=== PATIENT | male | born 1945 | race Caucasian/White ===

== ENCOUNTER → 2018-01-03 10:15 | Outpatient (CLI) | payer MEDICARE, OTHER, SELFPAY ==
[2018-01-03 11:13] LABS: BUN Creatinine Ratio 27.7 (6-22); Calcium 9.1 mg/dL (8.4-10.2); Glucose 110 mg/dL (80-110); HEMOLYSIS < 15 (0-50); Potassium 3.1 mmol/L (3.4-5.1); Sodium 140 mmol/L (137-145)
[2018-01-03 11:39] LABS: Cortisol Random 6.94 ug/dL
[2018-01-07 15:38] LABS: Aldosterone/Renin Activity Rat 52.6 Ratio (0.9-28.9); Plama Renin, LC/MS/MS 0.19 ng/mL/h (0.25-5.82)
== END ==
PROVIDERS: PCP Internal Medicine; Visit Provider Internal Medicine
DX: I10 Essential (primary) hypertension (principal)
CPT/HCPCS: 36415; 80048; 82088; 82533; 84244

== ENCOUNTER → 2018-01-16 09:08 | Outpatient (CLI) | payer MEDICARE, OTHER, SELFPAY | PROVIDERS: PCP Internal Medicine; Visit Provider Internal Medicine | DX: E26.1 Secondary hyperaldosteronism (principal) | CPT/HCPCS: 82088 ==

== ENCOUNTER 2018-02-14 18:07 | Emergency (ER) | payer MEDICARE, OTHER, SELFPAY ==
[2018-02-14 18:12] VITALS: BP 164/77; PULSE 88; RESP 18; TEMP 37; O2SAT 98
--- NOTE | 2018-02-14 21:00 | ED.ALLEREA ---
HPI - Allergic Reaction <Kaitlin Mendez PA-C - Last Filed: 02/14/18 22:13> General Chief complaint: Allergic Reaction Stated complaint: STUNG ON RT HAND BY WASP 3DAYS AGO Time Seen by Provider: 02/14/18 21:00 Source: patient Mode of arrival: ambulatory Limitations: no limitations History of Present Illness HPI narrative: This 72-year-old patient comes to the ED this evening due to swelling and redness on his right hand. He states that he had a wasp sting on his hand on Saturday and noticed mild swelling and a little bit of redness and itching as is typical for him, but in the last couple of days he has had worsening swelling and redness, and states that his thumb started to feel stiff any is having more difficulty closing his fingers due to the swelling, so that brought him in tonight. He denies any fever and states that his pain is mild and is more of a swollen, stiff sensation. He denies any other new complaints on systems review. 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 He has GI intolerance with doxycycline. He states his only true allergy is with iodine. Related Data Previous Rx's Medication Instructions Recorded furosemide [Lasix] 20 mg PO Q DAY #30 tab 10/09/17 cephalexin [Keflex] 500 mg PO QID #24 cap 02/14/18 Allergies Allergy/AdvReac Type Severity Reaction Status Date / Time doxycycline Allergy Unknown Verified 02/14/18 18:21 Penicillins Allergy Unknown Verified 02/14/18 18:20 Review of Systems <Kaitlin Mendez PA-C - Last Filed: 02/14/18 22:13> Review of Systems All systems reviewed & are unremarkable except as noted in HPI and below Exam <Kaitlin Mendez PA-C - Last Filed: 02/14/18 22:13> Narrative Exam Narrative: GENERAL APPEARANCE: Patient sitting comfortably, in no distress. LUNGS: Clear to auscultation bilaterally. HEART: Rate and rhythm regular without murmur, normal S1 and S2, no S3 or S4. DERMATOLOGIC: Right hand dorsum is warm, erythematous over the hand and metacarpals, not over the fingers. This extends no further than the wrist. There is a tiny puncture or sting wound on the lateral dorsum. MUSCULOSKELETAL: Moderate right hand dorsum effusion. Right hand fingers able to extend and flex but difficulty with full evaluation assistant secondary to effusion. Full a ROM of the wrist. NEUROVASCULAR: Right hand sensation is grossly intact, fingers are warm and pink and pulses are intact radial and ulnar Initial Vital Signs Initial Vital Signs: Vital Signs Temperature 98.6 F 02/14/18 18:12 Pulse Rate 88 02/14/18 18:12 Respiratory Rate 18 02/14/18 18:12 Blood Pressure 164/77 H 02/14/18 18:12 Pulse Oximetry 98 02/14/18 18:12 <Al Aguilar MD - Last Filed: 02/15/18 03:15> Initial Vital Signs Initial Vital Signs: Vital Signs Temperature 98.6 F 02/14/18 18:12 Pulse Rate 88 02/14/18 18:12 Respiratory Rate 18 02/14/18 18:12 Blood Pressure 164/77 H 02/14/18 18:12 Pulse Oximetry 98 02/14/18 18:12 Course <Kaitlin Mendez PA-C - Last Filed: 02/14/18 22:13> Additional Information: Patient does appear to have developed a secondary cellulitis following his insect sting. This is limited to the hand dorsum. Reviewed previous records and he has taken cephalosporins without problems. Given cephalexin to start as well as 20 mg of prednisone x3 days. He agreed to return if acutely worsening over the weekend. Margins of erythema inked so he can monitor Orders Ordered: Discontinued Medications Cefazolin Sodium (Keflex) 1 bottle MISC SEEINSTR ONE Stop: 02/14/18 21:21 Last Admin: 02/14/18 21:21 Dose: 1 1000units Prednisone (Deltasone 20 Mg Prepack) 1 bottle MISC SEEINSTR ONE Stop: 02/14/18 21:21 Last Admin: 02/14/18 21:22 Dose: 1 bottle Vital Signs - 8 hr 02/14/18 21:14 Temperature 98.7 F Pulse Rate 77 Respiratory Rate 20 Blood Pressure [Left Arm] 151/79 H Pulse Oximetry 100 <Al Aguilar MD - Last Filed: 02/15/18 03:15> Orders Ordered: Discontinued Medications Cefazolin Sodium (Keflex) 1 bottle MISC SEEINSTR ONE Stop: 02/14/18 21:21 Last Admin: 02/14/18 21:21 Dose: 1 1000units Prednisone (Deltasone 20 Mg Prepack) 1 bottle MISC SEEINSTR ONE Stop: 02/14/18 21:21 Last Admin: 02/14/18 21:22 Dose: 1 bottle Vital Signs - 8 hr 02/14/18 21:14 Temperature 98.7 F Pulse Rate 77 Respiratory Rate 20 Blood Pressure [Left Arm] 151/79 H Pulse Oximetry 100 Discharge Plan Departure Patient Disposition: Home, Self-Care Clinical Impression: Cellulitis, Wasp sting Discharge Date/Time: 02/14/18 21:35 Interventions: ED Discharge Assessment Last Done: 02/14/18 21:33 Instructions: DI for Cellulitis -- Adult, DI for Insect Bites and Stings Activity Restrictions/Additional Instructions: Please return as we talked about if your hand is acutely worse over the weekend, or you have new symptoms such as fever otherwise take the 1st dose of prednisone (1 tablet) when you get home, and take 1 daily for 3 days to help with the swelling. Take 2 of the antibiotic pills that we gave you 4 times daily, and I also sent a prescription in to the pharmacy for you to grape picker which will be 1 pill at a time, also 4 times daily. You should follow up with your PCP if this is not improving over the next few days. Prescriptions: New cephalexin [Keflex] 500 mg capsule 500 mg PO QID Qty: 24 RF: 0 No Action furosemide [Lasix] 20 MG tablet 20 mg PO Q DAY Qty: 30 RF: 0 Referrals: Med Fernandez MD [Primary Care Provider] - <Al Aguilar MD - Last Filed: 02/15/18 03:15> Cosign ED Attending Aguedaature Attestation: I was available in the ER department for consultation and assistance if necessary. I agree with the content of the note and the treatment plan.
[2018-02-14 21:14] VITALS: BP 151/79; PULSE 77; RESP 20; TEMP 37.1; O2SAT 100
[2018-02-14] MEDS: cephALEXin 250 MG PREPACK 1 BOTTLE MISC (21:21)
[2018-02-14] MEDS: predniSONE 20 MG PREPACK 1 BOTTLE MISC (21:22)
--- NOTE | 2018-02-14 21:29 | ED_ITS ---
HPI - Allergic Reaction <Kaitlin Mendez PA-C - Last Filed: 02/14/18 22:13> General Chief complaint: Allergic Reaction Stated complaint: STUNG ON RT HAND BY WASP 3DAYS AGO Time Seen by Provider: 02/14/18 21:00 Source: patient Mode of arrival: ambulatory Limitations: no limitations History of Present Illness HPI narrative: This 72-year-old patient comes to the ED this evening due to swelling and redness on his right hand. He states that he had a wasp sting on his hand on Saturday and noticed mild swelling and a little bit of redness and itching as is typical for him, but in the last couple of days he has had worsening swelling and redness, and states that his thumb started to feel stiff any is having more difficulty closing his fingers due to the swelling, so that brought him in tonight. He denies any fever and states that his pain is mild and is more of a swollen, stiff sensation. He denies any other new complaints on systems review. 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 He has GI intolerance with doxycycline. He states his only true allergy is with iodine. Related Data Previous Rx's Medication Instructions Recorded furosemide [Lasix] 20 mg PO Q DAY #30 tab 10/09/17 cephalexin [Keflex] 500 mg PO QID #24 cap 02/14/18 Allergies Allergy/AdvReac Type Severity Reaction Status Date / Time doxycycline Allergy Unknown Verified 02/14/18 18:21 Penicillins Allergy Unknown Verified 02/14/18 18:20 Review of Systems <Kaitlin Mendez PA-C - Last Filed: 02/14/18 22:13> Review of Systems All systems reviewed & are unremarkable except as noted in HPI and below Exam <Kaitlin Mendez PA-C - Last Filed: 02/14/18 22:13> Narrative Exam Narrative: GENERAL APPEARANCE: Patient sitting comfortably, in no distress. LUNGS: Clear to auscultation bilaterally. HEART: Rate and rhythm regular without murmur, normal S1 and S2, no S3 or S4. DERMATOLOGIC: Right hand dorsum is warm, erythematous over the hand and metacarpals, not over the fingers. This extends no further than the wrist. There is a tiny puncture or sting wound on the lateral dorsum. MUSCULOSKELETAL: Moderate right hand dorsum effusion. 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 Full a ROM of the wrist. NEUROVASCULAR: Right hand sensation is grossly intact, fingers are warm and pink and pulses are intact radial and ulnar Initial Vital Signs Initial Vital Signs: Vital Signs Temperature 98.6 F 02/14/18 18:12 Pulse Rate 88 02/14/18 18:12 Respiratory Rate 18 02/14/18 18:12 Blood Pressure 164/77 H 02/14/18 18:12 Pulse Oximetry 98 02/14/18 18:12 <Al Aguilar MD - Last Filed: 02/15/18 03:15> Initial Vital Signs Initial Vital Signs: Vital Signs Temperature 98.6 F 02/14/18 18:12 Pulse Rate 88 02/14/18 18:12 Respiratory Rate 18 02/14/18 18:12 Blood Pressure 164/77 H 02/14/18 18:12 Pulse Oximetry 98 02/14/18 18:12 Course <Kaitlin Mendez PA-C - Last Filed: 02/14/18 22:13> Additional Information: Patient does appear to have developed a secondary cellulitis following his insect sting. This is limited to the hand dorsum. Reviewed previous records and he has taken cephalosporins without problems. Given cephalexin to start as well as 20 mg of prednisone x3 days. He agreed to return if acutely worsening over the weekend. Margins of erythema inked so he can monitor Orders Ordered: Discontinued Medications Cefazolin Sodium (Keflex) 1 bottle MISC SEEINSTR ONE Stop: 02/14/18 21:21 Last Admin: 02/14/18 21:21 Dose: 1 1000units Prednisone (Deltasone 20 Mg Prepack) 1 bottle MISC SEEINSTR ONE Stop: 02/14/18 21:21 Last Admin: 02/14/18 21:22 Dose: 1 bottle Vital Signs - 8 hr 02/14/18 21:14 Temperature 98.7 F Pulse Rate 77 Respiratory Rate 20 Blood Pressure [Left Arm] 151/79 H Pulse Oximetry 100 <Al Aguilar MD - Last Filed: 02/15/18 03:15> Orders Ordered: Discontinued Medications Cefazolin Sodium (Keflex) 1 bottle MISC SEEINSTR ONE Stop: 02/14/18 21:21 Last Admin: 02/14/18 21:21 Dose: 1 1000units Prednisone (Deltasone 20 Mg Prepack) 1 bottle MISC SEEINSTR ONE Stop: 02/14/18 21:21 Last Admin: 02/14/18 21:22 Dose: 1 bottle Vital Signs - 8 hr 02/14/18 21:14 Temperature 98.7 F Pulse Rate 77 Respiratory Rate 20 Blood Pressure [Left Arm] 151/79 H Pulse Oximetry 100 Discharge Plan Departure Patient Disposition: Home, Self-Care Clinical Impression: Cellulitis, Wasp sting Discharge Date/Time: 02/14/18 21:35 Interventions: ED Discharge Assessment Last Done: 02/14/18 21:33 Instructions: DI for Cellulitis -- Adult, DI for Insect Bites and Stings Activity Restrictions/Additional Instructions: Please return as we talked about if your hand is acutely worse over the weekend , or you have new symptoms such as fever otherwise take the 1st dose of prednisone (1 tablet) when you get home, and take 1 daily for 3 days to help with the swelling. Take 2 of the antibiotic pills that we gave you 4 times daily , and I also sent a prescription in to the pharmacy for you to pickle pumper which will be 1 pill at a time, also 4 times daily. You should follow up with your PCP if this is not improving over the next few days. Prescriptions: New cephalexin [Keflex] 500 mg capsule 500 mg PO QID Qty: 24 RF: 0 No Action furosemide [Lasix] 20 MG tablet 20 mg PO Q DAY Qty: 30 RF: 0 Referrals: Med Fernandez MD [Primary Care Provider] - <Al Aguilar MD - Last Filed: 02/15/18 03:15> Cosign ED Attending Aguedaature Attestation: I was available in the ER department for consultation and assistance if necessary. I agree with the content of the note and the treatment plan.
== END 2018-02-14 21:35 | disposition home or self-care (01) ==
PROVIDERS: Emergency Provider Internal Medicine; PCP Internal Medicine
DX: L03.113 Cellulitis of right upper limb (principal)
CPT/HCPCS: 99282; 99283

== ENCOUNTER → 2018-03-24 11:43 | Outpatient (CLI) | payer MEDICARE, OTHER, SELFPAY ==
--- NOTE | 2018-03-24 | DI.RAD.S_ITS ---
PROCEDURE: XR SACRUM COCCYX MIN 2V INDICATIONS: TRAUMA TO TAILBONE TECHNIQUE: 3 views of the sacrum and coccyx acquired. COMPARISON: [facility] [place], CR, XR PELVIS W LATERAL HIP RT, 11/29/2015, 10:44. FINDINGS: Bones: No fractures or dislocations. No suspicious bony lesions. Status post total right hip arthroplasty. Soft tissues: Visualized bowel gas pattern is normal. No suspicious soft tissue densities. IMPRESSION: Negative for fracture Dictated by: Bran French M.D. on 03/24/2018 at 12:16 Approved by: Bran French M.D. on 03/24/2018 at 12:18
== END ==
PROVIDERS: PCP Internal Medicine; Visit Provider Internal Medicine
DX: S39.92XA Unspecified injury of lower back, initial encounter (principal)
CPT/HCPCS: 72220

== ENCOUNTER → 2018-04-18 13:36 | Outpatient (CLI) | payer MEDICARE, OTHER, SELFPAY ==
--- NOTE | 2018-04-18 | DI.MRI.S_ITS ---
PROCEDURE: MR KNEE LT W CON INDICATIONS: DERANGEMENT OF MINISCUS TECHNIQUE: After the administration of 50 mL of dilute intra-articular Gadolinium contrast, sagittal T1 spin echo with fat saturation and PD fast spin echo with fat saturation, coronal T1 spin echo with and without fat saturation, coronal T2 fast spin echo with fat saturation, axial PD fast spin echo with fat saturation through the knee. COMPARISON: [facility], MR, LOW.EXTR.NO JOINT WWO CONTRAST, 12/09/2008, 18:05. [facility], CR, KNEE SERIES LT, 03/27/2017, 9:20. [facility], MR, KNEE WITHOUT CONTRAST, 04/03/2017, 8:27. [facility] [place], CR, XR KNEE ARTHRITIC SERIES LT, 04/01/2018, 8:33. FINDINGS: Image quality: Excellent. Menisci: There is a small radial tear involving the body of the lateral meniscus along with diffuse fraying of the free edge of the lateral meniscus. There is probable tear in the posterior horn of the lateral meniscus medially extending into the posterior root ligament. Mild fraying of the free edge of the medial meniscus is present. Cruciate ligaments: The anterior and posterior cruciate ligaments appear intact. Medial structures: The medial collateral ligament appears intact. The posterior oblique ligament, semimembranosus tendon insertions, oblique popliteal ligament, and meniscocapsular junction appear intact. Visualized portions of the pes anserinus tendons appear normal. No abnormal bursal fluid. Lateral structures: The lateral collateral ligament, long and short heads of the biceps femoris tendon appear intact. The popliteus tendon appears normal; the popliteofibular ligament appears intact. The posterosuperior and anteroinferior popliteomeniscal fascicles appear intact. The arcuate and fabellofibular ligaments appear intact around the lateral inferior geniculate artery. Iliotibial band appears normal. Anterior structures: The quadriceps and patellar tendons appear intact. Patellar alignment is normal. No femoral trochlear dysplasia or ventral trochlear prominence. No edema in the infrapatellar fat pad. Bone and cartilage: No bone marrow contusions or fractures. Subchondral cysts in tibial eminence. There is tricompartmental cartilage thinning. Joint space: No Martinez's cyst. Normal appearing synovial plicae are incidentally noted. No intra-articular bodies. IMPRESSION: 1. A small radial tear involving the body of the lateral meniscus. 2. Probable tear of the posterior horn of the lateral meniscus extending into the posterior root ligament. 3. Fraying of the free edge of the medial meniscus. 4. Tricompartmental cartilage loss. Dictated by: Sudhakar Jansen M.D. on 04/18/2018 at 14:57 Approved by: Sudhakar Jansen M.D. on 04/18/2018 at 18:09
--- NOTE | 2018-04-18 | DI.RAD.S_ITS ---
PROCEDURE: FL ARTHROGRAM KNEE LT INDICATIONS: DERANGEMENT OF MINISCUS TECHNIQUE: The indications, alternatives, benefits, risks, and complications of the procedure were explained to the patient. Written informed consent was obtained and placed in the chart. The knee was examined fluoroscopically, and a site chosen for knee joint injection. The skin was prepped and draped in a sterile fashion, and 1% Lidocaine infiltrated from the skin down to the articular surface. A hypodermic needle was then introduced into the joint and iodinated contrast media was instilled to confirm the intra-articular needle tip placement. This was followed by approximately 50 mL dilute solution of a gadolinium containing MR contrast agent. The needle was removed and a bandage was applied. An Jonny wrap was then applied around the knee joint to keep the contrast from collecting in the suprapatellar recess. The patient experienced no complications throughout the procedure and left the fluoroscopic suite in no apparent distress. FINDINGS: Single fluoroscopic spot image demonstrates intra-articular location to injected iodinated contrast. IMPRESSION: Successful fluoroscopically guided administration of dilute Gadolinium solution into the knee joint for MR arthrogram. Dictated by: Jabari Dias M.D. on 04/18/2018 at 15:07 Approved by: Jabari Dias M.D. on 04/18/2018 at 15:07
== END ==
PROVIDERS: PCP Internal Medicine; Visit Provider Orthopaedic Surgery
DX: S83.282A Other tear of lateral meniscus, current injury, left knee, initial encounter (principal)
CPT/HCPCS: 27370; 73580; 73722

== ENCOUNTER 2018-09-17 07:26 | Day surgery (SDC) | payer MEDICARE, OTHER, SELFPAY ==
--- NOTE | 2018-09-17 | PATH_ITS ---
[facility] Accession Number: [id number] . 01 Material submitted: . ASCENDING COLON POLYP . 02 Diagnosis: Ascending Colon, Polyp, Biopsy: Tubular adenoma. MRV/09/18/2018 . 02 Electronically signed: . Judith Felipe MD, Pathologist NPI- [id number] . 01 Gross description: . Received one formalin-filled container labeled with the patient's name and labeled ascending colon polyp. The specimen consists of multiple less than 0.1 cm to 0.4 cm portions of tissue, which are filtered, wrapped, and entirely submitted in one cassette. ([id number]) /FRR . 02 Pathologist provided ICD-10: D12.2 . 02 CPT . 287535 Performed at: 01 [facility] [address] [id number] MD Dwight Zapata MD Phone: [phone] Performed at: 02 [facility] [address] [place], [place] [id number] MD Judith Felipe MD Phone: [phone]
--- NOTE | 2018-09-17 07:21 | PM.HP.1 ---
History of Present Illness Chief complaint: [id number] COLONOSCOPY Narrative: 72-year-old male here for colon polyp surveillance. No active GI issues at present with no alarm symptoms Patient History Medical History BPH (benign prostatic hyperplasia) (Chronic) HTN (hypertension) (Chronic) History of colon polyps (Chronic) Surgical History S/P TURP (status post transurethral resection of prostate) (Resolved) Social History Smoking Status: Never smoker Family & Social History Tobacco & Substance use: Smoking Status Never smoker Substance Use Type does not use Meds Home Medications Medication Instructions Recorded Confirmed Type furosemide [Lasix] 20 mg PO Q DAY #30 tab 10/09/17 Rx cephalexin [Keflex] 500 mg PO QID #24 cap 02/14/18 Rx Allergies Allergy/AdvReac Type Severity Reaction Status Date / Time doxycycline Allergy Unknown Verified 02/14/18 18:21 Penicillins Allergy Unknown Verified 02/14/18 18:20 Exam Narrative Exam Narrative: General: Patient is well developed, not in apparent distress Cardiovascular: Regular rate and rhythm, no murmurs, rubs, or gallops; no evidence of edema; no palpable abdominal aortic aneurysm Gastrointestinal: Normoactive bowel sounds, soft, nontender, nondistended, no rebound tenderness, no hepatosplenomegaly, no evidence of hernia Assessment & Plan (1) History of colon polyps: Current visit: No Status: Acute Assessment/Plan Narrative: 72-year-old male with a history of colon polyps on last colonoscopy 2013, here for colon polyp surveillance. Regarding the procedure(s), the risks and potential complications, benefits, and alternatives (including not doing the procedure) were discussed with the patient. The risks include but are not limited to bleeding, splenic injury, infection, perforation which may require surgical intervention, missed lesions, and adverse reactions to sedative medicines. After a question and answer period, the patient agreed to proceed with the procedure(s) and gives informed consent.
[2018-09-17 08:04] VITALS: BP 154/80; PULSE 62; RESP 16; TEMP 36.4; O2SAT 99; BMI 25.3
[2018-09-17] MEDS: SODIUM CHLORIDE 0.9% 1,000 ML 70 ML IV (08:12)
--- NOTE | 2018-09-17 08:28 | SUR.PREOP ---
Pt unsure of home medication list- as well. Pt knows he is on aciphex and baby aspirin and 3 bp meds. aware.
[2018-09-17] MEDS: fentaNYL 250 MCG/5 ML INJ IV (08:31)
[2018-09-17] MEDS: MIDAZOLAM 5 MG/5 ML VIAL IV (08:31)
[2018-09-17 08:44] VITALS: BP 125/68; PULSE 62; RESP 11; TEMP 36.6; O2SAT 98
--- NOTE | 2018-09-17 08:47 | PM.OP.ENDO ---
Operative Date/Time/Diagnoses Date of procedure: 09/17/18 Procedure Notes Procedure in detail: Surgeon: Darshan Boston MD Procedure: Colonoscopy with snare polypectomy Preoperative diagnosis: Colon polyp surveillance Postoperative diagnosis: Ascending colon polyp status post polypectomy, descending and sigmoid diverticulosis, grade 1 internal hemorrhoids Medications: Conscious sedation using 4 mg IV of Midazolam and 100 mcg IV of Fentanyl Preanesthesia Assessment An H and P was performed/updated and the Px?s ASA class is 2. The procedure was discussed in detail with the patient. The potential risks and complications including infection, bleeding, missed lesions, perforation, need for surgery in case of perforation, prolonged hospital stay, and were explained. A brief question and answer period was allotted and once all questions were answered, informed consent was obtained. The patient was brought back to the procedure room and placed on standard monitoring. The patient?s vital signs were monitored continuously throughout the entire procedure. Prior to starting, a timeout was performed to confirm the patient?s identity, allergies, medications, and procedure. Procedure in detail The patient was placed in left lateral decubitus position and once adequate sedation was obtained a DENEEN was performed. The digital rectal examination did not reveal any palpable lesions. The tip of the colonoscope was placed in the anal canal and advanced without difficulty all the way to the cecum which was identified by the appendiceal orifice and the ileocecal valve. Careful examination of all candelario of the colon was performed with irrigation of any residual stool. There was note of stool balls in the left colon which were able to be washed away and were likely from his diverticulosis. In the ascending colon there was note of a 5 mm semi pedunculated polyp which was removed in its entirety by means of cold snare. Resection and retrieval were complete with minimal bleeding In the descending colon and sigmoid colon there was note of multiple medium-sized diverticula Retroflexion was performed in the rectum which revealed grade 1 internal hemorrhoids The patient tolerated the procedure well and will be brought back to the recovery area to be discharged once criteria are met. The prep was judged to be good and adequate to identify polyps less than 5 mm. The withdrawal time was 10 min. The total physician intraservice time was 15 min. Complications There were no complications and estimated blood loss was minimal. Recommendations: Resume previous diet Continue outPx medications Follow up pathology results Repeat colonoscopy in 5 years. This will be dependent on health issues at that time An emergency contact number was given to the patient for any complications related to the procedure
[2018-09-17 08:49] VITALS: BP 117/67; PULSE 65; RESP 13; O2SAT 98
--- NOTE | 2018-09-17 08:51 | PM.DS.1 ---
History of Present Illness Chief complaint: [id number] COLONOSCOPY Narrative: 72-year-old male here for colon polyp surveillance. No active GI issues at present with no alarm symptoms Discharge Providers Primary care physician: Med Fernandez MD Discharge provider: Darshan Boston MD Discharge Date: 09/17/18 Exam Vital Signs (past 8 hours): - 09/17/18 08:04 09/17/18 08:44 Temperature 97.5 F L 97.9 F Pulse Rate 62 62 Respiratory Rate 16 11 L Blood Pressure 154/80 H 125/68 Pulse Oximetry 99 98 Oxygen Delivery Method Room Air Narrative Exam Narrative: General: Patient is well developed, not in apparent distress Cardiovascular: Regular rate and rhythm, no murmurs, rubs, or gallops; no evidence of edema; no palpable abdominal aortic aneurysm Gastrointestinal: Normoactive bowel sounds, soft, nontender, nondistended, no rebound tenderness, no hepatosplenomegaly, no evidence of hernia Discharge Plan Discharge Plan Patient Disposition: Home Discharge Med Rec/Prescriptions Prescriptions: Continued rabeprazole 20 mg Tablet,Delayed Release (Dr/Ec) 20 mg PO BID RF: 0 aspirin [Aspir-81] 81 mg Tablet,Delayed Release (Dr/Ec) 81 mg PO DAILY RF: 0 Follow up/Referrals: Med Fernandez MD [Primary Care Provider] - Discharge Orders: Discharge (Order); Ordered 09/17/18 Ordered By: Darshan Boston Provider Discharge Instructions Diet: Diet as Tolerated Visit Report/Discharge Packet Stand Alone Forms: Colonoscopy Result: [facility], Surgery Discharge Discharge Data Primary Care Provider: Med Fernandez V Attending Provider: Darshan Boston
[2018-09-17 08:55] VITALS: BP 114/65; PULSE 60; RESP 8; TEMP 36.7; O2SAT 98
--- NOTE | 2018-09-17 09:00 | SUR.PHASEI ---
stable pacu stay.
[2018-09-17 09:01] VITALS: BP 123/64; PULSE 61; RESP 14; O2SAT 98
--- NOTE | 2018-09-17 09:11 | SUR.PHASEII ---
called, call went straight to voice mail, volunteers aware to bring her in when she returns. pt drinking juice cll light at bedside.
[2018-09-17 09:30] VITALS: BP 124/70; PULSE 60; RESP 16; TEMP 36.7; O2SAT 99
--- NOTE | 2018-09-17 09:48 | SUR.PHASEII ---
returned, vss, left when ready and left in stable condition.
== END 2018-09-17 09:45 | disposition home or self-care (01) ==
PROVIDERS: PCP Internal Medicine; Visit Provider Internal Medicine Gastroenterology
PROC: 0DJD8ZZ Inspection of Lower Intestinal Tract, Via Natural or Artificial Opening Endoscopic (ICD-10-PCS; CPT 45378; principal; 2018-09-17 08:30)
DX: Z86.010 Personal history of colon polyps (principal); I10 Essential (primary) hypertension; N40.0 Benign prostatic hyperplasia without lower urinary tract symptoms; K57.30 Diverticulosis of large intestine without perforation or abscess without bleeding; K64.0 First degree hemorrhoids; D12.2 Benign neoplasm of ascending colon
CPT/HCPCS: 45385; 88305; J2250; J3010

== ENCOUNTER → 2018-10-22 13:08 | Outpatient (CLI) | payer MEDICARE, OTHER, SELFPAY ==
[2018-10-24 14:14] LABS: PSA Free % 18 % (calc) (> 25); PSA, Total 1.1 ng/mL (< 4.1)
== END ==
PROVIDERS: Family Provider Internal Medicine; PCP Internal Medicine; Visit Provider Urology
DX: R97.20 Elevated prostate specific antigen [PSA] (principal)
CPT/HCPCS: 36415; 84153; 84154

== ENCOUNTER → 2019-06-03 15:05 | Outpatient (ROUT) | payer MEDICARE, OTHER, SELFPAY ==
[2019-06-03 15:38] LABS: Aspartate Aminotransferase 22 IU/L (17-59); Blood Urea Nitrogen 30 mg/dL (9-20); Calcium 9.2 mg/dL (8.4-10.2); Carbon Dioxide 28 mmol/L (22-32); Chloride 103 mmol/L (98-107); Cholesterol 137 mg/dL (140-199); Glucose 99 mg/dL (80-110); HDL Cholesterol 33 mg/dL (40-60); HEMOLYSIS < 15 (0-50); LDL Cholesterol Calculated 69 mg/dL (<100); Sodium 139 mmol/L (137-145); Triglycerides 173 mg/dL (35-150)
[2019-06-03 16:09] LABS: Prostate Specific Antigen 1.13 ng/mL (0.10-4.00)
== END ==
PROVIDERS: Visit Provider Internal Medicine
DX: I10 Essential (primary) hypertension (principal); N52.9 Male erectile dysfunction, unspecified; E78.2 Mixed hyperlipidemia
CPT/HCPCS: 80048; 80061; 84153; 84450

== ENCOUNTER → 2019-11-02 10:51 | Outpatient (CLI) | payer MEDICARE, OTHER, SELFPAY ==
[2019-11-02 13:07] LABS: Prostate Specific Antigen 1.04 ng/mL (0.10-4.00)
== END ==
PROVIDERS: Family Provider Internal Medicine; PCP Internal Medicine; Referring Provider Internal Medicine; Visit Provider Urology
DX: R97.20 Elevated prostate specific antigen [PSA] (principal)
CPT/HCPCS: 36415; 84153

== ENCOUNTER 2019-12-18 12:44 | Emergency (ER) | payer MEDICARE, OTHER, SELFPAY ==
[2019-12-18 13:03] VITALS: BP 171/79; PULSE 87; RESP 20; TEMP 36.6; O2SAT 99; BMI 26.9
--- NOTE | 2019-12-18 13:18 | ED_ITS ---
HPI - Back Pain/Injury <Tigist YanBLAINE - Last Filed: 12/18/19 16:40> General Chief Complaint: Back Pain/Injury Stated Complaint: 'BACK GOT A MUSCLE SPASM' Time Seen by Provider: 12/18/19 12:53 Source: patient Limitations: no limitations History of Present Illness HPI Narrative: 74-year-old male with a history of back pain, DDD, and central canal stenosis presents to the emergency department for right and left-sided back pain and spasms. Patient states a week ago he threw a large tree stump and developed left-sided back pain that a gradually progressed to the right side. He states the pain is a dull aching pain that is worse with rotation of his torso, bending, and transitioning from sitting to standing in laying to sitting. Patient states he had an telemed appointment and was given a muscle relaxer called Tizanidine, he reports he started to feel better for a day but then the pain returned. Patient states he had a shot in his back previously by Dr. Haile which instantly relieve the pain. He has also had Toradol and Valium in the past which has helped. Patient denies any other symptoms such as pain with urination, blood in urine, chest pain, fevers, shortness of breath, nausea, vomiting, diarrhea, or any other concerns. Related Data Home Medications Medication Instructions Recorded Confirmed aspirin [Aspir-81] 81 mg PO DAILY 09/17/18 09/17/18 carvedilol 25 mg tablet 25 mg PO BID 02/11/19 02/11/19 chlor tabs 4 mg PO Q4H PRN 02/11/19 02/11/19 mature adult vitamin PO DAILY 02/11/19 02/11/19 minoxidil 10 mg tablet 10 mg PO DAILY 02/11/19 02/11/19 spironolactone 25 mg tablet 25 mg PO BID 02/11/19 02/11/19 tadalafil 20 mg tablet 20 mg PO DAILY PRN 02/11/19 02/11/19 tramadol 50 mg tablet 50 mg PO BID PRN 02/11/19 02/11/19 rabeprazole 20 mg tablet,delayed 20 mg PO TID tab 12/22/19 release Previous Rx's Medication Instructions Recorded celecoxib 200 mg capsule 200 mg PO DAILY #90 cap 02/11/19 diazepam [Valium] 5 mg PO BID PRN #6 tab 12/18/19 gabapentin 300 mg capsule 300 mg PO .COMPLEX #90 cap 12/21/19 methylprednisolone 4 mg tablets in See Rx Instructions PO PER PKG DIR 12/21/19 a dose pack #21 each cyclobenzaprine 10 mg tablet 10 mg PO BID PRN #60 tab 12/22/19 Allergies Allergy/AdvReac Type Severity Reaction Status Date / Time iodine Allergy Intermediate Rash Verified 12/22/19 10:59 doxycycline Allergy Unknown Nausea Verified 12/22/19 10:59 Penicillins Allergy Unknown throat Verified 12/22/19 10:59 swelling Review of Systems <BLAINE Alonzo - Last Filed: 12/18/19 16:40> Review of Systems Narrative: REVIEW OF SYSTEMS: GENERAL: Denies fever or chills. HENT: No head trauma. EYES: No vision changes. CARDIOVASCULAR: No chest pain or syncope. RESPIRATORY: No shortness of breath or cough. GASTROINTESTINAL: No nausea, vomiting, diarrhea, or constipation. GENITOURINARY: No flank pain or dysuria. MUSCULOSKELETAL: Complains of back pain, see HPI. INTEGUMENTARY: No rash, lesions, or pruritus. NEURO: No numbness, tingling. PSYCH: No behavior or mood changes. Patient History <BLAINE Alonzo - Last Filed: 12/18/19 16:40> Medical History (Updated 12/22/19 @ 11:27 by Al Palma DO) BPH (benign prostatic hyperplasia) (Chronic) Facet arthropathy, lumbosacral (Acute) History of colon polyps (Chronic) HTN (hypertension) (Chronic) Lumbar radiculopathy, acute (Acute) Surgical History (Updated 12/22/19 @ 11:27 by Al Palma DO) S/P TURP (status post transurethral resection of prostate) (Resolved) Status post total hip replacement, right (Acute) Social History household members: spouse Smoking Status: Never smoker Smoking Status: Never smoker Substance Use Type: does not use Exam <BLAINE Alonzo - Last Filed: 12/18/19 16:40> Initial Vital Signs Initial Vital Signs: Vital Signs Temperature 97.8 F 12/18/19 13:03 Pulse Rate 87 12/18/19 13:03 Respiratory Rate 20 12/18/19 13:03 Blood Pressure 171/79 H 12/18/19 13:03 Pulse Oximetry 99 12/18/19 13:03 PHYSICAL EXAMINATION: GENERAL: Well groomed, alert, and cooperative. Answers questions promptly and appropriately. Vital signs noted. HENT: Normocephalic, atraumatic. EYES: Symmetrical, sclera white, no periorbital swelling. CARDIOVASCULAR: S1 and S2 sounds normal. Regular rate and rhythm, no murmurs, clicks, or bruits. No pedal edema. RESPIRATORY: Normal respiratory rate, trachea midline, airway patent. No stridor, nasal flaring or accessory muscle use. Lungs are clear in all blackmon. MUSCULOSKELETAL: Tenderness to right and left mid lumbar region, consistent with the iliolumbar ligament placement. Small muscle spasms palpated to both locations. No spinal tenderness or deformities. Equal strength to upper and lower extremities. EXTREMITIES: CMS intact. No pedal edema. SKIN: Warm, dry, soft, appropriate color for ethnicity. No lesions, rashes, or wounds. NEURO: Alert and Oriented X 3. No sensory deficits. PSYCH: Appropriate affect and mood. <Karla Kennedy DO - Last Filed: 12/23/19 09:24> Initial Vital Signs Initial Vital Signs: Vital Signs Temperature 97.8 F 12/18/19 13:03 Pulse Rate 87 12/18/19 13:03 Respiratory Rate 12/18/19 13:03 Blood Pressure 171/79 H 12/18/19 13:03 Pulse Oximetry 99 12/18/19 13:03 Course <BLAINE Alonzo - Last Filed: 12/18/19 16:40> Course Course Narrative: Patient reports reduced pain after administration of Toradol and Valium, he is able to bend forward and touch the ground with some stiffness. He is up walking around without excessive drowsiness. Patient was given another dose of Valium to further relieve back pain and spasms. We discussed the importance of follow-up with his orthopedic as planned. Orders Ordered: Discontinued Medications Diazepam (Valium) 5 mg PO NOW ONE Stop: 12/18/19 13:16 Last Admin: 12/18/19 13:48 Dose: 5 mg Documented by: DC Diazepam (Valium) 5 mg PO NOW ONE Stop: 12/18/19 14:25 Last Admin: 12/18/19 14:41 Dose: 5 mg Documented by: LALA Ketorolac Tromethamine (Toradol) 30 mg IM NOW ONE Stop: 12/18/19 13:17 Last Admin: 12/18/19 13:49 Dose: 30 mg Documented by: DC Reevaluation(s) Reevaluation #1: Patient staffed with Dr. Kennedy, discussed medication dosages. Vital Signs Vital signs: Vital Signs - 8 hr 12/18/19 13:03 Temperature 97.8 F Pulse Rate 87 Respiratory Rate 20 Blood Pressure 171/79 H Pulse Oximetry 99 <Karla Kennedy DO - Last Filed: 12/23/19 09:24> Orders Ordered: Discontinued Medications Diazepam (Valium) 5 mg PO NOW ONE Stop: 12/18/19 13:16 Last Admin: 12/18/19 13:48 Dose: 5 mg Documented by: DC Diazepam (Valium) 5 mg PO NOW ONE Stop: 12/18/19 14:25 Last Admin: 12/18/19 14:41 Dose: 5 mg Documented by: LALA Ketorolac Tromethamine (Toradol) 30 mg IM NOW ONE Stop: 12/18/19 13:17 Last Admin: 12/18/19 13:49 Dose: 30 mg Documented by: DC Vital Signs Vital signs: Vital Signs - 8 hr 12/18/19 13:03 Temperature 97.8 F Pulse Rate 87 Respiratory Rate 20 Blood Pressure 171/79 H Pulse Oximetry 99 MDM - Back Pain/Injury <BLAINE Alonzo - Last Filed: 12/18/19 16:40> Medical Records Attestation: I reviewed the patient's medical records. Lab Data Attestation: I reviewed the patient's lab results. MDM Narrative Medical decision making narrative: 74-year-old male with a history of chronic back pain and DDD presenting to the emergency department for back pain that started on the left and progressed to the right over the past week after doing yd work and specifically ?throwing a tree stump ?. He received a muscle relaxer via tele health visit with his primary care provider which helped for about a day but then the pain continued. Patient had pain relief with Toradol and Valium administration. I suspect patient's pain is most likely musculoskeletal in particularly a muscle spasm and or lumbar back strain due to location of pain, pain worsening with movement, relief of pain with administration of Toradol and Valium, history of physical activity and increased yd work and lack of other concerning symptoms such as trauma, dysuria, fevers, spinal tenderness, or blood in urine. Patient was encouraged to follow up with his orthopedic in the next week for further evaluation. He was discharged with Valium to help with muscle spasms. We discussed taking ibuprofen naproxen for the next 3 days however, he reports he has ?stomach issues with those medications ?. He was encouraged to take Tylenol. Return precautions given for new or worsening symptoms. Patient agreed to plan of care verbalized understanding. <Karla Kennedy, DO - Last Filed: 12/23/19 09:24> [facility] Narrative Medical decision making narrative: Case was discussed with myself. Agree with current plan. Discharge Plan Departure Patient Disposition: Home Clinical Impression: Back pain Qualifiers: Back pain location: low back pain Chronicity: acute Back pain laterality: bilateral Sciatica presence: unspecified whether sciatica present Qualified Code(s): M54.5 - Low back pain Discharge Date/Time: 12/18/19 14:49 Instructions: DI for Low Back Pain, DI for Back Spasm Activity Restrictions/Additional Instructions: Thank you for entrusting me with your care today. As discussed, we have given you an injection of Toradol for your back pain. We have also given you a medication called Valium which is a strong muscle relaxer. This medication can make you drowsy, do not drive with this medication. You may take Tylenol with the Valium if you need further pain relief. Use ice and heat to help with pain, perform gentle stretches, and take short walks to help relieve back pain and stiffness. Please follow-up with your primary care provider or orthopedic in the next week for further evaluation. Return emergency department for any new or worsening symptoms such as high fevers, chest pain, blood in the urine, worsening pain, or any other concerns. Prescriptions: New diazepam [Valium] 5 mg tablet 5 mg PO BID PRN (Reason: back spasm) Qty: 6 RF: 0 No Action methylprednisolone [Medrol (Bijan)] 4 mg tablets,dose pack See Rx Instructions PO PER PKG DIR Qty: 21 RF: 0 gabapentin 300 mg capsule 300 mg PO .COMPLEX Qty: 90 RF: 2 aspirin [Aspir-81] 81 mg Tablet,Delayed Release (Dr/Ec) 81 mg PO DAILY RF: 0 rabeprazole 20 mg tablet,delayed release (DR/EC) 20 mg PO TID RF: 0 carvedilol 25 mg tablet 25 mg PO BID RF: 0 spironolactone 25 mg tablet 25 mg PO BID RF: 0 minoxidil 10 mg tablet 10 mg PO DAILY RF: 0 mature adult vitamin PO DAILY RF: 0 chlor tabs 4 mg PO Q4H PRNRF: 0 tramadol 50 mg tablet 50 mg PO BID PRNRF: 0 tadalafil [Cialis] 20 mg tablet 20 mg PO DAILY PRNRF: 0 celecoxib [Celebrex] 200 mg capsule 200 mg PO DAILY Qty: 90 RF: 2 Hold Instructions: Home Medication placed on hold at Doctor's office cyclobenzaprine 10 mg tablet 10 mg PO BID PRN (Reason: muscle spasm) Qty: 60 RF: 1 Referrals: Med Fernandez MD [Primary Care Provider] -
--- NOTE | 2019-12-18 13:29 | PC.NURSE ---
Patient was throwing a log last week and injured his left lower lumbar spine. The pain is radiating to his right side. It is painful when he bends left and slightly painful when bending right. It is painful for him to bend down and tie his shoes. He was prescribed muscle relaxer but this has not been working. He is requesting a pain injection.
[2019-12-18] MEDS: diazePAM 5 MG TABLET PO ×2 (13:48→14:41)
[2019-12-18] MEDS: KETOROLAC 60 MG/2 ML VIAL 30 MG IM (13:49)
== END 2019-12-18 14:49 | disposition home or self-care (01) ==
PROVIDERS: Emergency Provider Nurse Practitioner; Family Provider Internal Medicine; PCP Internal Medicine
DX: M54.5 Low back pain (principal)
CPT/HCPCS: 96372; 99283; J1885

== ENCOUNTER → 2019-12-22 10:16 | Outpatient (CLI) | payer MEDICARE, OTHER, SELFPAY ==
--- NOTE | 2019-12-22 10:18 | DI.RAD.S_ITS ---
PROCEDURE: XR LUMBAR SPINE MIN 4V INDICATIONS: Acute lumbar radiculopathy TECHNIQUE: 5 with views of the lumbar spine were acquired. COMPARISON: [facility], MR, L-SPINE WITHOUT CONTRAST, 10/14/2017, 16:37. [facility], RF, LUMBAR FACET, 10/29/2017, 8:19. FINDINGS: Bones: 5 nonrib-bearing vertebrae are present. There is normal bony alignment. No vertebral body compression fractures. No suspicious bony lesions. Soft tissues: Overlying bowel gas pattern is normal. No suspicious soft tissue calcifications. Oblique images: No pars defects. IMPRESSION: Mild degenerative disc disease and mild to moderate facet osteoarthritis over the lumbosacral spine little if any changed from the comparison MRI 10/14/17. No compression fracture found. Depending on the clinical status, however, followup by MR scanning may be warranted. Dictated by: Jabari Dias M.D. on 12/22/2019 at 11:18 Approved by: Jabari Dias M.D. on 12/22/2019 at 11:20
== END ==
PROVIDERS: Family Provider Internal Medicine; PCP Internal Medicine; Referring Provider Internal Medicine; Visit Provider Physical Medicine & Rehabilitation
DX: M51.17 Intervertebral disc disorders with radiculopathy, lumbosacral region (principal); M47.27 Other spondylosis with radiculopathy, lumbosacral region; Z96.641 Presence of right artificial hip joint
CPT/HCPCS: 72110; 99213

== ENCOUNTER → 2019-12-23 16:48 | Outpatient (CLI) | payer MEDICARE, OTHER, SELFPAY ==
--- NOTE | 2019-12-23 16:53 | DI.MRI.S_ITS ---
PROCEDURE: MR LUMBAR SPINE WO CON INDICATIONS: Acute lumbar radiculopathy TECHNIQUE: Noncontrast sagittal T1 spin echo and T2 fast echo, sagittal STIR, axial T1 and T2 fast spin echo through the lumbar spine. In cases with scoliosis, additional coronal T2 fast spin echo may be performed. COMPARISON: [facility], CR, XR LUMBAR SPINE MIN 4V, 12/22/2019, 10:11. [facility], MR, L-SPINE WITHOUT CONTRAST, 10/14/2017, 16:37. FINDINGS: Image quality: Excellent. Alignment and Curvature: Mild levoconvex curvature is noted. Bone Marrow: Marrow is of normal overall signal. Hypointense T1 and T2 signal at the L1 vertebral body is again noted without change compared to 2018. No acute vertebral body compression fractures. Schmorl's node with mild reactive endplate changes are noted along the inferior endplate of L2. Mild reactive endplate changes are present at L3-4, L4-5. Spinal Cord: Conus medullaris terminates at the L1-L2 level. Visualized cord demonstrates normal signal and size. Paraspinous Soft Tissues: No paravertebral masses. Discs: Mild to moderate desiccation is present throughout the lumbar spine. L1-L2: Mild disc bulge with minimal to mild canal narrowing. Mild bilateral foraminal narrowing. Mild facet and ligamentum flavum hypertrophy. No interval change. L2-L3: Mild disc bulge with minimal to mild spinal stenosis. Mild left foraminal narrowing. Facet and ligamentum flavum hypertrophy are present. No interval change. L3-L4: Mild disc bulge with minimal to mild canal narrowing. Mild to moderate bilateral foraminal narrowing, minimally progressive. Facet and ligamentum flavum hypertrophy are present. L4-L5: Mild disc bulge with mild spinal stenosis. Mild bilateral foraminal narrowing facet and ligamentum flavum hypertrophy. Minimal interval progression. L5-S1: Mild disc bulge without spinal stenosis. Mild left foraminal narrowing with facet and ligamentum flavum hypertrophy. IMPRESSION: 1. Multiple degenerative changes of there is interval progression as above. 2. Multiple foraminal narrowing probably secondary to facet/ligamentum flavum arthropathy most notable at L3-4. Dictated by: Theresa Zamora M.D. on 12/24/2019 at 10:47 Approved by: Theresa Zamora M.D. on 12/24/2019 at 14:25
== END ==
PROVIDERS: Family Provider Internal Medicine; PCP Internal Medicine; Referring Provider Physical Medicine & Rehabilitation; Visit Provider Physical Medicine & Rehabilitation
DX: M47.26 Other spondylosis with radiculopathy, lumbar region (principal); M47.27 Other spondylosis with radiculopathy, lumbosacral region; M48.061 Spinal stenosis, lumbar region without neurogenic claudication; M48.07 Spinal stenosis, lumbosacral region
CPT/HCPCS: 72148

== ENCOUNTER → 2020-06-04 10:04 | Outpatient (CLI) | payer MEDICARE, OTHER, SELFPAY | PROVIDERS: Family Provider Internal Medicine; PCP Internal Medicine; Referring Provider Orthopaedic Surgery; Visit Provider Orthopaedic Surgery | DX: M23.203 Derangement of unspecified medial meniscus due to old tear or injury, right knee (principal); Z53.8 Procedure and treatment not carried out for other reasons ==

== ENCOUNTER → 2020-06-07 07:02 | Outpatient (CLI) | payer MEDICARE, OTHER, SELFPAY ==
--- NOTE | 2020-06-07 | DI.MRI.S_ITS ---
PROCEDURE: MR KNEE RT WO CON INDICATIONS: Unspecified internal derangement of right knee TECHNIQUE: Noncontrast sagittal PD fast spin echo and T2 fast spin echo with fat saturation, sagittal 3-D FLASH with fat saturation; coronal T1 spin echo and PD fast spin echo with fat saturation, and axial PD fast spin echo with fat saturation through the knee. COMPARISON: None. FINDINGS: Image quality: Excellent. Menisci: Medial meniscus intact. Vertically oriented abnormal intrasubstance signal change involving the body of the lateral meniscus is noted, extending to the inferior and superior articular surfaces. Cruciate ligaments: Anterior cruciate ligament appears intact. Posterior cruciate ligament appears intact. Medial structures: The medial collateral ligament appears intact. Semimembranosus tendon appears intact. Visualized portions of the pes anserinus tendons appear normal. No abnormal bursal fluid. Lateral structures: The lateral collateral ligament intact. Biceps femoris tendon appears intact. Popliteus tendon grossly unremarkable. Iliotibial band appears intact. Anterior structures: Quadriceps tendon intact. Medial and lateral patellofemoral ligaments intact. There is mild patellar tendinopathy. Prepatellar and superficial infrapatellar subcutaneous edema/fluid. Bones and cartilage: No focal marrow contusion or discrete low signal fracture line. Within the medial compartment, no focal cartilage defect. Within the lateral compartment, intrasubstance signal change in the central tibial cartilage. Within the patellofemoral compartment, mild diffuse surface fraying of the patellar and femoral trochlear cartilage. Joint space: Small joint effusion. 4 cm cephalocaudal dimension Martinez's cyst. No specific evidence of intra-articular loose body. IMPRESSION: Vertically oriented tear involving the body of the lateral meniscus. Small joint effusion Martinez's cyst Mild degenerative joint disease Mild patellar tendinopathy Dictated by: Eriberto Shaw M.D. on 06/07/2020 at 10:03 Approved by: Eriberto Shaw M.D. on 06/07/2020 at 10:16
== END ==
PROVIDERS: Family Provider Internal Medicine; PCP Internal Medicine; Referring Provider Internal Medicine; Visit Provider Orthopaedic Surgery
DX: S83.281A Other tear of lateral meniscus, current injury, right knee, initial encounter (principal); M25.461 Effusion, right knee; M71.21 Synovial cyst of popliteal space [Baker], right knee; M17.11 Unilateral primary osteoarthritis, right knee; M67.863 Other specified disorders of tendon, right knee
CPT/HCPCS: 73721

== ENCOUNTER → 2020-12-19 21:39 | Outpatient (ROUT) | payer MEDICARE, OTHER, SELFPAY ==
[2020-12-19 22:24] LABS: BUN Creatinine Ratio 27.1 (6-22); Blood Urea Nitrogen 32 mg/dL (9-20); Calcium 9.2 mg/dL (8.4-10.2); Carbon Dioxide 25 mmol/L (22-32); Chloride 102 mmol/L (98-107); Estimated Glomerular Filt Rate 59.9 mL/min (>60); Glucose 121 mg/dL (80-110); HEMOLYSIS 16 (0-50); Sodium 136 mmol/L (137-145)
== END ==
PROVIDERS: Family Provider Internal Medicine; PCP Internal Medicine; Visit Provider Internal Medicine
DX: I10 Essential (primary) hypertension (principal)
CPT/HCPCS: 80048

== ENCOUNTER → 2022-01-23 13:50 | Outpatient (CLI) | payer MEDICARE, OTHER, SELFPAY ==
[2022-01-23 17:50] LABS: Prostate Specific Antigen 1.38 ng/mL (0.10-4.00)
== END ==
PROVIDERS: Family Provider Internal Medicine; PCP Internal Medicine; Referring Provider Urology; Visit Provider Urology
DX: R97.20 Elevated prostate specific antigen [PSA] (principal)
CPT/HCPCS: 36415; 84153

== ENCOUNTER → 2022-03-29 10:00 | Outpatient (CLI) | payer MEDICARE, OTHER, SELFPAY ==
[2022-03-29 11:12] LABS: Add Manual Diff / Slide Review NO; Basophils Absolute Auto 100 /uL (0-100); Eosinophils Absolute Auto 500 /uL (0-450); Eosinophils Percent Auto 9.2 % (2-4); Hematocrit 37.1 % (41-53); Hemoglobin 13.3 g/dL (13.5-17.5); Lymphocytes Absolute Auto 1000 /uL (1100-4500); Lymphocytes Percent Auto 19.1 % (25-40); Mean Corpuscular HGB Conc 35.8 % (30-36); Mean Corpuscular Hemoglobin 30.6 PG (26-34); Mean Corpuscular Volume 85.5 fL (80-100); Monocytes Absolute Auto 600 /uL (0-900); Monocytes Percent Auto 11.2 % (3-14); Neutrophils Absolute Auto 3200 /uL (1500-7000); Neutrophils Percent Auto 59.5 % (50-75); Platelet Count 186 X10^3/uL (150-400); Red Blood Cell Count 4.34 X10^6/uL (4.5-5.9); Red Cell Distribution Width 13.6 % (11.6-14.8); White Blood Cell Count 5.4 X10^3/uL (4.5-11.0)
[2022-03-29 11:56] LABS: Alanine Aminotransferase 30 IU/L (<50); Albumin 3.4 g/dL (3.5-5.0); Albumin Globulin Ratio 1.7 (1.0-2.8); Alkaline Phosphatase 42 U/L (38-126); Aspartate Aminotransferase 25 IU/L (17-59); BUN Creatinine Ratio 25.2 (6-22); Bilirubin Total 0.6 mg/dL (0.2-1.3); Blood Urea Nitrogen 30 mg/dL (9-20); Calcium 8.5 mg/dL (8.4-10.2); Carbon Dioxide 26 mmol/L (22-32); Chloride 105 mmol/L (98-107); Estimated Glomerular Filt Rate > 60 mL/min (>60); Glucose 85 mg/dL (80-110); HEMOLYSIS 27 (0-50); Potassium 4.1 mmol/L (3.4-5.1); Sodium 138 mmol/L (137-145); Total Protein 5.4 g/dL (6.3-8.2)
[2022-03-29 12:17] LABS: TSH w/ Reflex to FT4 1.04 uIU/mL (0.47-4.68)
== END ==
PROVIDERS: Family Provider Internal Medicine; PCP Family Medicine; Referring Provider Family Medicine; Visit Provider Family Medicine
DX: E87.5 Hyperkalemia (principal); I10 Essential (primary) hypertension
CPT/HCPCS: 36415; 80053; 84443; 85025

== ENCOUNTER → 2023-08-14 15:05 | Outpatient (CLI) | payer MEDICARE, OTHER, SELFPAY | PROVIDERS: Family Provider Internal Medicine; PCP Family Medicine; Referring Provider Urology; Visit Provider Urology | DX: N40.1 Benign prostatic hyperplasia with lower urinary tract symptoms (principal); N35.812 Other bulbous urethral stricture, male; R97.20 Elevated prostate specific antigen [PSA] | CPT/HCPCS: 36415; 84153 ==

== ENCOUNTER → 2023-11-20 08:03 | Outpatient (CLI) | payer MEDICARE, OTHER, SELFPAY ==
[2023-11-20 10:03] LABS: HEMOLYSIS < 15 (0-50)
[2023-11-20 10:21] LABS: Alanine Aminotransferase 24 IU/L (<50); Albumin Globulin Ratio 1.7 (1.0-2.8); Alkaline Phosphatase 60 U/L (38-126); Aspartate Aminotransferase 27 IU/L (17-59); BUN Creatinine Ratio 28.8 (6-22); Bilirubin Total 0.9 mg/dL (0.2-1.3); Blood Urea Nitrogen 36 mg/dL (9-20); Calcium 9.1 mg/dL (8.4-10.2); Carbon Dioxide 28 mmol/L (22-32); Chloride 106 mmol/L (98-107); Cholesterol 114 mg/dL (140-199); Estimated Glomerular Filt Rate 59 mL/min (>60); Globulin 2.3 g/dL (1.7-4.1); Glucose 89 mg/dL (80-110); HDL Cholesterol 41 mg/dL (40-60); LDL Cholesterol Calculated 62 mg/dL (<100); Potassium 4.4 mmol/L (3.4-5.1); Sodium 140 mmol/L (137-145); Total Protein 6.3 g/dL (6.3-8.2); Triglycerides 53 mg/dL (35-150)
== END ==
PROVIDERS: Family Provider Internal Medicine; PCP Family Medicine; Referring Provider Family Medicine; Visit Provider Family Medicine
DX: E78.5 Hyperlipidemia, unspecified (principal); Z12.5 Encounter for screening for malignant neoplasm of prostate; N40.0 Benign prostatic hyperplasia without lower urinary tract symptoms; I10 Essential (primary) hypertension
CPT/HCPCS: 36415; 80053; 80061; G0103

== ENCOUNTER 2024-01-03 08:50 | Day surgery (SDC) | payer MEDICARE, OTHER, SELFPAY ==
[2024-01-03] MEDS: LACTATED RINGERS 1,000 ML 42 ML IV (09:07)
[2024-01-03 09:18] VITALS: BP 149/76; PULSE 52; RESP 14; TEMP 36; O2SAT 98
--- NOTE | 2024-01-03 09:52 | P.HP_ITS ---
History of Present Illness History of Present Illness Date Patient Seen: 01/03/24 Time Patient Seen: 09:52 Chief complaint: Screening Colonoscopy Narrative: colon cancer screening. [facility] Medical History Medicare annual wellness visit, subsequent History of squamous cell carcinoma Hyperlipidemia Well adult exam Vasomotor rhinitis (~1978) Hearing loss Colon polyps Skin cancer (~2018) GERD (gastroesophageal reflux disease) Allergic reaction Skin rash Lumbar radiculopathy, acute Facet arthropathy, lumbosacral HTN (hypertension) (~2013) History of colon polyps BPH (benign prostatic hyperplasia) Surgical History Status post total hip replacement, right S/P TURP (status post transurethral resection of prostate) Social History household members: spouse Smoking Status: Never smoker alcohol intake: never Meds Home Medications and Allergies Home Medications Medication Instructions Recorded Confirmed Type chlor tabs 4 mg PO Q4H PRN (Drug) Ingestion 02/11/19 11/28/23 History mature adult vitamin PO DAILY 02/11/19 11/28/23 History cholecalciferol (vitamin D3) 50 50 mcg PO DAILY 10/08/22 01/03/24 History mcg (2,000 unit) capsule minoxidil 10 mg tablet 10 mg PO DAILY #90 tabs 11/05/23 01/03/24 Rx carvedilol 25 mg tablet 25 mg PO BID #180 tabs 12/09/23 01/03/24 Rx rabeprazole 20 mg tablet,delayed 20 mg PO BID #180 tabs 12/09/23 01/03/24 Rx release rosuvastatin 10 mg tablet (Crestor) 10 mg PO DAILY #90 tabs 12/09/23 01/03/24 Rx Allergies Allergy/AdvReac Type Severity Reaction Status Date / Time iodine Allergy Intermediate Rash Verified 01/03/24 09:09 doxycycline Allergy Unknown Nausea Verified 01/03/24 09:09 Penicillins Allergy Unknown throat Verified 01/03/24 09:09 swelling Review of Systems Review of Systems ROS: Yes All systems reviewed with the patient and are negative except as otherwise documented Exam Vital Signs (past 8 hours): - 01/03/24 09:18 Temperature 96.8 F L Pulse Rate 52 L Respiratory Rate 14 Blood Pressure 149/76 H Pulse Oximetry 98 Oxygen Delivery Method Room Air Oxygen Delivery Method Room Air Const General: cooperative, healthy appearing and comfortable [facility] Head: normocephalic and atraumatic Eyes General: appearance normal, both eyes and all related structures Neck Neck: trachea midline and No JVD Resp Effort & Inspection: normal respiratory effort and able to speak in complete sentences Cardio Rate: regular rate Rhythm: regular rhythm GI Palpation: soft and No tender Skin General: atrophy and crusts Neuro General: patient alert, patient awake and patient oriented x3 Cognition: normal cognition Psych Mental Status: mental status grossly normal Judgment: judgment good Assessment & Plan Assessment & Plan narrative: H/o colon polyps here for colonoscopy with anesthesia Time Spent With Patient Time with patient: less than 30 minutes
--- NOTE | 2024-01-03 10:08 | PM.OP.COLON ---
Operative Date/Time/Diagnoses Date of procedure: 01/03/24 Time of procedure: 10:08 Pre-op diagnosis: History of colon polyps Post-op diagnosis: same Procedure & Clinicians Study performed: Colonoscopy with anesthesia Same procedure as scheduled: Yes Indications: History of colon polyps Surgeon: Adalgisa Harris Procedure Notes Procedure in detail: Preop diagnosis: History of colon polyps Postop diagnosis: Same Operative procedure: Colonoscopy with anesthesia Surgeon: Josey Harris MD Findings: Normal colonoscopy. Diverticulosis of the descending colon of moderate size. No polyps Procedure: Patient placed in a lateral position. Rectal exam is performed showing normal tone no masses. Prostate is irregular but status post multiple surgeries. Scope was inserted into the rectum and advanced to ileocecal valve with minimal difficulty. Insufflation extraction of the scope including retroflex in the rectum had the above findings. Impression: No polyps. Moderate-sized diverticulosis of the descending colon. Irregularity of the prostate likely secondary to scar tissue Plan: Repeat colonoscopy in 5 years if patient is in good health. Findings: divertiulosis Specimen(s): none sent Complications: none Post-procedure Recommendations: Colonoscopy in 5 years Follow up: as needed Disposition: PACU
[2024-01-03 10:13] VITALS: BP 110/65; PULSE 56; RESP 14; TEMP 36.2; O2SAT 97
[2024-01-03 10:18] VITALS: BP 133/70; PULSE 53; RESP 13; O2SAT 96
[2024-01-03 10:23] VITALS: BP 127/61; PULSE 57; RESP 18; TEMP 36.2; O2SAT 97
[2024-01-03 10:29] VITALS: BP 142/77; PULSE 54; RESP 15; TEMP 36.2; O2SAT 99
== END 2024-01-03 10:44 | disposition home or self-care (01) ==
PROVIDERS: Family Provider Internal Medicine; PCP Family Medicine; Referring Provider Surgery; Visit Provider Surgery
PROC: 0DJD8ZZ Inspection of Lower Intestinal Tract, Via Natural or Artificial Opening Endoscopic (ICD-10-PCS; CPT 45378; principal; 2024-01-03 09:45)
DX: Z12.11 Encounter for screening for malignant neoplasm of colon (principal); Z86.010 Personal history of colon polyps; K57.30 Diverticulosis of large intestine without perforation or abscess without bleeding
CPT/HCPCS: G0105; J2704

== ENCOUNTER → 2024-02-05 15:24 | Outpatient (CLI) | payer MEDICARE, OTHER, SELFPAY ==
--- NOTE | 2024-02-05 15:27 | DI.NM.S_ITS ---
PROCEDURE: NM EXERCISE TREADMILL NON NUC COMPARISON: None. INDICATIONS: exertional fatigue FINDINGS: The patient exercised for 7 minutes and 4 seconds reaching 74% of maximum predicted heart rate. Appropriate BP response to exercise. 10.1 METS, BELEN -32%. Resting ECG showed sinus rhythm with non-specific ST changes. No diagnostic ST changes and no angina during exercise or recovery. Occasional PACs during the study. IMPRESSION: Low risk submaximal stress test for the level of exercise achieved. Only 74% of maximum predicted heart rate reached. Good exercise capacity (BELEN -32%). Dictated by: Lizette Yuen MD on 02/06/2024 at 17:42 Approved by: Lizette Yuen MD on 02/06/2024 at 17:46
== END ==
PROVIDERS: Family Provider Internal Medicine; PCP Family Medicine; Referring Provider Family Medicine; Visit Provider Family Medicine
DX: T73.3XXA Exhaustion due to excessive exertion, initial encounter
CPT/HCPCS: 93017

== ENCOUNTER → 2024-08-07 11:23 | Outpatient (CLI) | payer MEDICARE, OTHER, SELFPAY ==
[2024-08-07 13:00] LABS: Prostate Specific Antigen 0.566 ng/mL (0.10-4.00)
== END ==
PROVIDERS: Family Provider Internal Medicine; PCP Family Medicine; Referring Provider Urology; Visit Provider Urology
DX: R97.20 Elevated prostate specific antigen [PSA] (principal)
CPT/HCPCS: 36415; 84153

== ENCOUNTER → 2024-12-01 10:30 | Outpatient (CLI) | payer MEDICARE, OTHER, SELFPAY ==
[2024-12-01 11:42] LABS: Add Manual Diff / Slide Review NO; Basophils Absolute Auto 0 /uL (0-100); Basophils Percent Auto 0.7 % (0-2); Eosinophils Absolute Auto 300 /uL (0-450); Eosinophils Percent Auto 6.4 % (2-4); Hematocrit 40.1 % (41-53); Hemoglobin 14.1 g/dL (13.5-17.5); Lymphocytes Absolute Auto 1000 /uL (1100-4500); Lymphocytes Percent Auto 19.6 % (25-40); Mean Corpuscular HGB Conc 35.2 % (30-36); Mean Corpuscular Hemoglobin 30.5 PG (26-34); Mean Corpuscular Volume 86.7 fL (80-100); Monocytes Absolute Auto 400 /uL (0-900); Monocytes Percent Auto 8.3 % (3-14); Neutrophils Absolute Auto 3200 /uL (1500-7000); Platelet Count 182 X10^3/uL (150-400); Red Blood Cell Count 4.62 X10^6/uL (4.5-5.9); Red Cell Distribution Width 13.7 % (11.6-14.8); White Blood Cell Count 4.9 X10^3/uL (4.5-11.0)
[2024-12-01 12:02] LABS: HEMOLYSIS < 15 (0-50); Iron 98 ug/dL (49-181)
[2024-12-01 12:06] LABS: Alanine Aminotransferase 24 IU/L (<50); Albumin 4.1 g/dL (3.5-5.0); Albumin Globulin Ratio 2.3 (1.0-2.8); Alkaline Phosphatase 51 U/L (38-126); Aspartate Aminotransferase 23 IU/L (17-59); BUN Creatinine Ratio 23.8 (6-22); Bilirubin Total 0.5 mg/dL (0.2-1.3); Blood Urea Nitrogen 30 mg/dL (9-20); Calcium 8.9 mg/dL (8.4-10.2); Carbon Dioxide 27 mmol/L (22-32); Chloride 106 mmol/L (98-107); Estimated Glomerular Filt Rate 57 mL/min (>60); Globulin 1.8 g/dL (1.7-4.1); Glucose 78 mg/dL (70-99); HEMOLYSIS < 15 (0-50); Potassium 4.7 mmol/L (3.4-5.1); Sodium 139 mmol/L (137-145); Total Protein 5.9 g/dL (6.3-8.2)
[2024-12-01 12:14] LABS: Percent Iron Saturation 38 % (20-50); Total Iron Binding Capacity 258 ug/dL (261-462); Transferrin 185 mg/dL (206-381)
[2024-12-01 12:35] LABS: TSH w/ Reflex to FT4 1.87 uIU/mL (0.47-4.68)
[2024-12-01 12:53] LABS: Vitamin B12 969 pg/mL (239-931)
== END ==
PROVIDERS: Family Provider Internal Medicine; PCP Family Medicine; Referring Provider Family Medicine; Visit Provider Family Medicine
DX: Z00.00 Encounter for general adult medical examination without abnormal findings (principal); K63.5 Polyp of colon; Z12.5 Encounter for screening for malignant neoplasm of prostate; E78.5 Hyperlipidemia, unspecified; N40.1 Benign prostatic hyperplasia with lower urinary tract symptoms; N40.0 Benign prostatic hyperplasia without lower urinary tract symptoms; K21.9 Gastro-esophageal reflux disease without esophagitis; I10 Essential (primary) hypertension
CPT/HCPCS: 80053; 82607; 83540; 83550; 84443; 85025; G0103

== ENCOUNTER 2025-04-21 19:35 | Emergency (ER) | payer MEDICARE, OTHER, SELFPAY ==
[2025-04-21] VITALS (11 sets, daily range): BP systolic 169–215; BP diastolic 84–103; PULSE 51–77; RESP 15–24; TEMP 36.6; O2SAT 96–98; BMI 25.0
--- NOTE | 2025-04-21 19:56 | DI.RAD.S_ITS ---
PROCEDURE: XR WRIST LT MIN 3V INDICATIONS: trauma TECHNIQUE: 4 views of the wrist were acquired. COMPARISON: None. FINDINGS: Bones: No fractures or dislocations. No suspicious bony lesions. Soft tissues: No suspicious soft tissue calcifications. IMPRESSION: No visualized acute fracture or dislocation. However, if clinical concern and/or pain persist, short interval imaging followup in 7-10 days is recommended, as occult injury cannot be definitively excluded. Dictated by: Theresa Zamora M.D. on 04/21/2025 at 21:31 Approved by: Theresa Zamora M.D. on 04/21/2025 at 21:32
--- NOTE | 2025-04-21 19:56 | DI.CT.S_ITS ---
PROCEDURE: CT TRAUMA CHEST ABDOMEN PELVIS INDICATIONS: trauma TECHNIQUE: After the administration of intravenous contrast, 5 mm thick sections acquired from the lung apices to the symphysis. 2.5 mm thick coronal and sagittal reformats were acquired. Additional 7 mm thick coronal maximum intensity projection (MIP) reformats acquired through the lungs. Optional 10-minute delayed imaging may be performed from the kidneys to the bladder. For radiation dose reduction, the following was used: automated exposure control, adjustment of mA and/or kV according to patient size. COMPARISON: None. FINDINGS: Image quality: Diagnostic. CHEST: Lower Neck: No enlarged lymph nodes. Thyroid: No thyroid nodules which require sonographic evaluation. Axillae: No enlarged lymph nodes. Chest Wall: No subcutaneous gas. Lungs and Pleura: No pulmonary contusions or lacerations. No acute airspace opacities. No pneumothorax or hemothorax. Mediastinum: No mediastinal hematomas. Heart size is normal. No pericardial effusion. Thoracic aorta and pulmonary arteries demonstrate normal size and enhancement. No mediastinal or hilar adenopathy. Esophagus is normal in caliber. No hiatal hernia. ABDOMEN: Liver: No lacerations. Multiple simple hepatic cysts. Gallbladder: No radiopaque gallstones or wall thickening. Biliary ducts: No biliary dilation. Pancreas: Homogenous enhancement. Spleen: Homogenous enhancement without laceration or hematoma. Adrenal Glands: Symmetric enhancement. Kidneys and Ureters: Symmetric enhancement. No hydronephrosis. No solid mass. No complex renal cystic lesion which requires follow up. Stomach and Bowel: Normal colonic caliber, without significant wall thickening. Colonic diverticula without inflammatory change. Peritoneum: No abnormal intraperitoneal fluid. No free air. Ventral Wall: No hernia. Abdominal Nodes: No retroperitoneal or mesenteric adenopathy by size criteria. Vessels: Aorta and inferior vena cava are normal in size. PELVIS: Pelvic Organs: Unremarkable. Bladder: Normal thickness. Pelvic Nodes: No enlarged lymph nodes. Miscellaneous: Containing inguinal hernias are seen. Bones: Right hip arthroplasty. Hardware is intact without hardware fracture or periprosthetic lucency to suggest loosening. Alignment is stable. Minimally displaced posterior right 12th rib and questionable nondisplaced posterior right 11th rib. IMPRESSION: Minimally displaced posterior right 12th and questionably nondisplaced posterior right 11th rib fractures. Dictated by: Theresa Zamora M.D. on 04/21/2025 at 21:13 Approved by: Theresa Zamora M.D. on 04/21/2025 at 21:19
--- NOTE | 2025-04-21 19:56 | DI.CT.S_ITS ---
PROCEDURE: CT FACIAL BONES WO CON INDICATIONS: trauma TECHNIQUE: Noncontrast 2.5 mm thick axial images acquired from the mandible through the frontal sinuses, with coronal and sagittal reformatting. For radiation dose reduction, the following was used: automated exposure control, adjustment of mA and/or kV according to patient size. COMPARISON: None. FINDINGS: Image quality: Excellent. Bones and teeth: Orbital candelario are intact. Sinus candelario show no fracture or deformity. Nasal bones and septum are intact. Visualized portions of the mandible demonstrate no fractures or subluxation. Zygomatic arches are intact. Pterygoid plates are intact. Visualized portions of the skull base and auditory canals are intact. Sinuses: Minimal scattered areas pansinus mucosal thickening. No fluid levels. Mastoid air cells are aerated. Soft tissues: No edema, masses, or fluid collections. No enlarged lymph nodes. No soft tissue lacerations or debris. Vascular: Visualized vascular structures appear normal in the absence of contrast. Bony vascular foramina and canals are intact. IMPRESSION: No visualized fracture. Dictated by: Theresa Zamora M.D. on 04/21/2025 at 20:41 Approved by: Theresa Zamora M.D. on 04/21/2025 at 20:45
--- NOTE | 2025-04-21 19:57 | DI.CT.S_ITS ---
PROCEDURE: CT HEAD/BRAIN WO CON INDICATIONS: Trauma TECHNIQUE: Noncontrast 4.5 mm thick angled axial sections acquired from the foramen magnum to the vertex, with coronal and sagittal reformats. For radiation dose reduction, the following was used: automated exposure control, adjustment of mA and/or kV according to patient size. COMPARISON: [facility], CT, CT FACIAL BONES WO CON, 04/21/2025, 20:12. FINDINGS: Image quality: Diagnostic. CSF spaces: Basal cisterns are patent. No extra-axial fluid collections. The ventricles are symmetric in size and shape. Brain: There is asymmetrically thickened and hyperdense appearance of the left tentorium extending to portions of the falx compared to the right. There is cerebral volume loss, with resultant ventricular and sulcal prominence. There are periventricular and deep white matter chronic small vessel ischemic changes. There is intracranial internal carotid artery atherosclerosis. Skull and face: Calvarium and visualized facial bones appear intact, without suspicious lesions. Sinuses: Visualized sinuses and mastoids are clear. IMPRESSION: Asymmetric hyperdense appearance within the left tentorium and portions of the falx. No priors are available for comparison. Finding raises suspicion for potential hematoma. 6 hour interval follow-up is recommended. Dictated by: Theresa Zamora M.D. on 04/21/2025 at 20:36 Approved by: Theresa Zamora M.D. on 04/21/2025 at 20:41
--- NOTE | 2025-04-21 19:57 | DI.CT.S_ITS ---
PROCEDURE: CT CERVICAL SPINE WO CON INDICATIONS: Trauma TECHNIQUE: Noncontrast 3 mm thick sections acquired from the skull base to the T4 level. Sagittal and coronal reformats were then constructed. For radiation dose reduction, the following was used: automated exposure control, adjustment of mA and/or kV according to patient size. COMPARISON: None. FINDINGS: Image quality: Excellent. Bones: No fractures or dislocations. Visualized superior ribs are intact. Multilevel degenerative changes are present. Soft tissues: Prevertebral soft tissues are normal in thickness. No paravertebral hematomas. No apical pneumothoraces. Partially visualized slight asymmetric left tentorial hyperdense prominence. IMPRESSION: No displaced fracture or traumatic subluxation. Slight asymmetric hyperdense appearance of the left tentorium. See CT brain report 04/21/2025 for further details. Dictated by: Theresa Zamora M.D. on 04/21/2025 at 20:45 Approved by: Theresa Zamora M.D. on 04/21/2025 at 20:46
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
[2025-04-21 20:10] LABS: Add Manual Diff / Slide Review NO; Hematocrit 44.9 % (41-53); Hemoglobin 15.6 g/dL (13.5-17.5); Lymphocytes Absolute Auto 1600 /uL (1100-4500); Mean Corpuscular HGB Conc 34.7 % (30-36); Mean Corpuscular Hemoglobin 30.4 PG (26-34); Mean Corpuscular Volume 87.6 fL (80-100); Platelet Count 216 X10^3/uL (150-400)
[2025-04-21] MEDS: diphenhydrAMINE 50 MG/ML VIAL IV (20:10)
[2025-04-21] MEDS: ONDANSETRON 4 MG/2 ML INJ IV (20:10)
[2025-04-21] MEDS: methylPREDNISolone succ 125 MG/2 ML VIAL IV (20:10)
[2025-04-21] MEDS: FAMOTIDINE 20 MG/2 ML VIAL IV (20:10)
[2025-04-21 20:28] LABS: INR 1.0 (0.9-1.3); Prothrombin Time 10.8 SECONDS (9.4-12.5)
[2025-04-21 20:30] LABS: PTT Partial Thromboplastin Tim 24 SECONDS (25.1-36.5)
[2025-04-21 20:36] LABS: Alanine Aminotransferase 29 IU/L (<50); Albumin 4.3 g/dL (3.5-5.0); Albumin Globulin Ratio 1.8 (1.0-2.8); Alkaline Phosphatase 56 U/L (38-126); Blood Urea Nitrogen 36 mg/dL (9-20); Calcium 9.0 mg/dL (8.4-10.2); Carbon Dioxide 27 mmol/L (22-32); Chloride 105 mmol/L (98-107); Estimated Glomerular Filt Rate 55 mL/min (>60); Globulin 2.4 g/dL (1.7-4.1); Glucose 124 mg/dL (70-99); HEMOLYSIS < 15 (0-50); Lipase 53 U/L (23-300); Potassium 4.1 mmol/L (3.4-5.1); Sodium 139 mmol/L (137-145); Total Protein 6.7 g/dL (6.3-8.2)
[2025-04-21 20:45] LABS: Ethanol (ETOH) < 10 mg/dL (<10); Lactate (Lactic Acid) 2.1 mmol/L (0.7-2.1)
--- NOTE | 2025-04-21 20:46 | EKG_ITS ---
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
[2025-04-21] MEDS: LACTATED RINGERS 1,000 ML 1000 ML IV (20:53)
--- NOTE | 2025-04-21 21:36 | DI.CT.S_ITS ---
PROCEDURE: CT HEAD/BRAIN WO CON INDICATIONS: Repeat 6 hours post questionable TECHNIQUE: Noncontrast 4.5 mm thick angled axial sections acquired from the foramen magnum to the vertex, with coronal and sagittal reformats. For radiation dose reduction, the following was used: automated exposure control, adjustment of mA and/or kV according to patient size. COMPARISON: [facility], CT, CT HEAD/BRAIN WO CON, 04/21/2025, 20:12. FINDINGS: Image quality: Diagnostic CSF spaces: Basal cisterns are patent. Lateral ventricles are symmetric. Volume: Vascular calcifications. Periventricular white matter disease is commonly seen with chronic microangiopathy. Volume loss is present. These findings are [id number] Brain: Possible trace subdural hematoma along the inferior falx and posterior left tentorium. This is similar. Craniofacial structures: Mild paranasal sinus mucosal thickening. IMPRESSION: No new or enlarging hemorrhage. Basal cisterns are patent. No significant changes from the preliminary report. Trace density along the inferior falx and left tentorium is similar, which could be a trace subdural hematoma. Dictated by: Killian Tanner M.D. on 04/22/2025 at 7:14 Approved by: Killian Tanner M.D. on 04/22/2025 at 7:17
[2025-04-21 21:40] LABS: Reflexed Lactate in 2 Hours Y
--- NOTE | 2025-04-21 22:36 | PC.NURSE ---
pt ambulatory to bathroom then moved to Rm 8
[2025-04-22] VITALS: BP 184/88; PULSE 77; RESP 18; O2SAT 97
[2025-04-22 00:30] VITALS: BP 175/83; PULSE 71; RESP 14; O2SAT 97
[2025-04-22 01:00] VITALS: BP 145/71; PULSE 75; RESP 13; O2SAT 94
--- NOTE | 2025-04-22 04:09 | PC.NURSE ---
attempted to walk pt, pt stated that d/t the medication we gave him that his balance was not good right now, so he would not be able to walk for about another hour
[2025-04-22] MEDS: ALBUTEROL HFA PREPACK 1 BOX MISC (05:37)
[2025-04-22 08:03] VITALS: BP 182/81; PULSE 84; RESP 16; TEMP 36.8; O2SAT 97
== END 2025-04-22 08:50 | disposition home or self-care (01) ==
PROVIDERS: Emergency Provider Emergency Medicine; Family Provider Internal Medicine; PCP Family Medicine
DX: S06.5X1A Traumatic subdural hemorrhage with loss of consciousness of 30 minutes or less, initial encounter (principal); S06.0X1A Concussion with loss of consciousness of 30 minutes or less, initial encounter; S22.31XA Fracture of one rib, right side, initial encounter for closed fracture; S60.212A Contusion of left wrist, initial encounter; S00.83XA Contusion of other part of head, initial encounter; R10.12 Left upper quadrant pain; Z79.82 Long term (current) use of aspirin; W55.22XA Struck by cow, initial encounter
CPT/HCPCS: 70450; 70486; 71275; 72125; 73110; 74177; 80053; 80320; 83605; 83690; 85025; 85610; 85730; 93005; 96361; 96374; 96375; 96376; 99284; 99285; J1171; J1200; J2405; J2919; Q9967

== ENCOUNTER → 2025-04-29 10:46 | Outpatient (CLI) | payer MEDICARE, OTHER, SELFPAY ==
--- NOTE | 2025-04-29 10:47 | DI.CT.S_ITS ---
PROCEDURE: CT HEAD/BRAIN WO CON INDICATIONS: screening TECHNIQUE: Noncontrast 4.5 mm thick angled axial sections acquired from the foramen magnum to the vertex, with coronal and sagittal reformats. For radiation dose reduction, the following was used: automated exposure control, adjustment of mA and/or kV according to patient size. COMPARISON: [facility], CT, CT HEAD/BRAIN WO CON, 04/21/2025, 20:12. [facility], CT, CT HEAD/BRAIN WO CON, 04/22/2025, 2:23. FINDINGS: Image quality: Diagnostic. CSF spaces: Basal cisterns are patent. No extra-axial fluid collections. The ventricles are symmetric in size and shape. Brain: No intracranial bleeds or mass effect. There is cerebral volume loss, with resultant ventricular and sulcal prominence. There are periventricular and deep white matter chronic small vessel ischemic changes. There is intracranial internal carotid artery atherosclerosis. Skull and face: Calvarium and visualized facial bones appear intact, without suspicious lesions. Sinuses: Visualized sinuses and mastoids are clear. IMPRESSION: No intracranial hemorrhage is seen. Note is made of age-appropriate brain parenchymal volume loss and chronic small vessel ischemic changes. To the limits of this noncontrast study, no findings of intracranial masses or mass effect can be seen. Dictated by: Domingo Iyer M.D. on 04/29/2025 at 10:57 Approved by: Domingo Iyer M.D. on 04/29/2025 at 10:58
== END ==
PROVIDERS: PCP Family Medicine; Referring Provider Family Medicine; Visit Provider Family Medicine
DX: S06.5XAA Traumatic subdural hemorrhage with loss of consciousness status unknown, initial encounter (principal); S00.83XA Contusion of other part of head, initial encounter
CPT/HCPCS: 70450